=== PATIENT | female | born 1950 | race Caucasian/White ===

== ENCOUNTER 2023-05-09 10:05 | Outpatient (CLI) | payer MEDICARE, OTHER ==
[2023-05-09] MEDS ORDERED: GADOTERATE MEGLUMINE 7.5 MMOL/15 ML VIAL IV ONE (11:31)
== END 2023-05-09 23:59 | disposition home or self-care (01) ==
LOC: RAD 10:05
PROVIDERS: ATTEND Family Medicine
DX: R90.82 White matter disease, unspecified (principal); A00-B99 Certain infectious and parasitic diseases; B53.0 Plasmodium ovale malaria; Y07.010 Husband, current, perpetrator of maltreatment and neglect
CPT/HCPCS: 70553; A9575